=== PATIENT | male | born 1990 | race African-American/Black ===

== ENCOUNTER 2016-08-28 09:06 | Emergency (ER) | payer SELFPAY ==
[~2016-08-28] VITALS: Ht 181.6 cm; Wt 104.3 kg
[~2016-08-28 09:06] MED LIST: BUTA1CAP29 PO; TRAM-29 PO
[2016-08-28 09:22] VITALS: BP 153/101
[2016-08-28] MEDS ORDERED: BUTA1CAP29 PO (09:50)
[2016-08-28] MEDS ORDERED: TRAM50TA PO (09:50)
[2016-08-28] MEDS ORDERED: AMOX500C PO (09:50)
[2016-08-28] MEDS ORDERED: ORPH100T PO (09:50)
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
== END 2016-08-28 10:03 | disposition home or self-care (01) ==
LOC: ER 09:06
DX: S00.81XA Abrasion of other part of head, initial encounter (principal); S09.93XA Unspecified injury of face, initial encounter; G43.909 Migraine, unspecified, not intractable, without status migrainosus; F12.10 Cannabis abuse, uncomplicated; Z98.890 Other specified postprocedural states; Z88.6 Allergy status to analgesic agent; V89.2XXA Person injured in unspecified motor-vehicle accident, traffic, initial encounter; Y93.89 Activity, other specified; Y99.8 Other external cause status; Y92.488 Other paved roadways as the place of occurrence of the external cause
CPT/HCPCS: 99283

== ENCOUNTER 2017-11-01 17:36 | Emergency (ER) | payer SELFPAY ==
[2017-11-01] MEDS: HYDROcodone/APAP 5/325MG 1 TAB TABLET PO (18:40)
== END 2017-11-01 19:02 ==
LOC: ER 17:36
DX: K04.7 Periapical abscess without sinus (principal); G43.909 Migraine, unspecified, not intractable, without status migrainosus; Z88.6 Allergy status to analgesic agent
CPT/HCPCS: 99283

== ENCOUNTER 2018-01-31 20:51 | Emergency (ER) | payer SELFPAY ==
[~2018-01-31] VITALS: Ht 180.3 cm; Wt 113.4 kg
[~2018-01-31 20:51] MED LIST changes: +AMOX500C PO; +ORPH100T PO; -TRAM-29 PO; +TRAM-48 PO; +TRAM50TA PO
[2018-01-31 21:01] VITALS: BP 137/74
[2018-01-31] MEDS: AZITHROMYCIN 250 MG TABLET. PO ONE (21:35)
[2018-01-31] MEDS: metroNIDAZOLE 500 MG TABLET PO ONE (21:35)
[2018-01-31] MEDS: cefTRIAXone IM 250 MG VIAL IM ONE (21:35)
--- NOTE | 2018-01-31 22:03 | PHYS DOC ---
Past Medical History Past Medical History: STD Past Surgical History: No Surgical History Additional Past Surgical Histo: Facial, hernia repair Alcohol Use: Occasionally Drug Use: Marijuana Adult General Chief Complaint Chief Complaint: SEXUALLY TRANSMITTED DISEASE HPI HPI Patient is a 27 year old medical presents requesting prescription for antibiotics to treat him for Trichomonas because the girlfriend informed him she was treated for Trichomonas. Patient denies any symptoms. Review of Systems Review of Systems Constitutional: Denies fever or chills [] GI: Denies abdominal pain, nausea, vomiting, bloody stools or diarrhea [] : Denies dysuria or hematuria [] Male :STD concern Musculoskeletal: Denies back pain or joint pain [] Integument: Denies rash or skin lesions [] Neurologic: Denies headache, focal weakness or sensory changes [] All other systems were reviewed and found to be within normal limits, except as documented in this note. Current Medications Current Medications Current Medications Medications (Trade) Dose Ordered Sig/Gloria Start Time Stop Time Status Last Admin Dose Admin Azithromycin (Zithromax) 1,000 mg 1X ONCE 01/31/18 21:30 01/31/18 21:31 DC 01/31/18 21:35 1,000 MG Ceftriaxone Sodium (Rocephin Im) 250 mg 1X ONCE 01/31/18 21:30 01/31/18 21:31 DC 01/31/18 21:35 250 MG Metronidazole (Flagyl) 2,000 mg 1X ONCE 01/31/18 21:30 01/31/18 21:31 DC 01/31/18 21:35 2,000 MG Allergies Allergies Allergies Coded Allergies Type Severity Reaction Last Updated Verified aspirin Allergy Severe throat swelling 08/28/16 Yes Physical Exam Physical Exam Constitutional: Well developed, well nourished, no acute distress, non-toxic appearance. [] Skin: Warm, dry, no erythema, no rash. [] Back: No tenderness, no CVA tenderness. [] Extremities: No tenderness, no cyanosis, no clubbing, ROM intact, no edema. [] Neurologic: Alert and oriented X 3, normal motor function, normal sensory function, no focal deficits noted. [] Psychologic: Affect normal, judgement normal, mood normal. [] Current Patient Data Vital Signs Vital Signs Date Time Temp Pulse Resp B/P (MAP) Pulse Ox O2 Delivery O2 Flow Rate FiO2 01/31/18 21:01 97.6 78 18 137/74 (95) 97 Room Air 97.6 EKG EKG [] Radiology/Procedures Radiology/Procedures [] Course & Med Decision Making Course & Med Decision Making Pertinent Labs and Imaging studies reviewed. (See chart for details) This is a 27-year-old male patient presented to the ED today requesting prescription for medicine to treat Trichomonas. Girlfriend informed patient she was diagnosed with Trichomonas and treated. Patient was given treatment in the ED which included Rocephin Flagyl and azithromycin. Instructed him to contact all his sex partners and ask them to seek treatment too. Importance of using protection emphasized. Follow-up with the health department as needed. Dragon Disclaimer Dragon Disclaimer This electronic medical record was generated, in whole or in part, using a voice recognition dictation system. Departure Departure Impression: Primary Impression: Concern about STD in female without diagnosis Disposition: HOME, SELF-CARE Condition: STABLE Referrals: NO PCP (PCP) Follow-up with the health department as needed Patient Instructions: Sexually Transmitted Disease, [id number] Additional Instructions: You were treated in the emergency room for sexually transmitted diseases. Please use protection at all times. Follow-up with the health department as needed. Contact all your sex partners, let them know you treated for STDs and ask them to seek treatment too. SHERYL LIM APRN Jan 31, 2018 22:03
== END 2018-01-31 22:25 | disposition home or self-care (01) ==
LOC: ER 20:51
DX: Z20.2 Contact with and (suspected) exposure to infections with a predominantly sexual mode of transmission (principal); Z88.6 Allergy status to analgesic agent
CPT/HCPCS: 96372; 99283; J0696; Q0144

== ENCOUNTER 2018-02-22 10:52 | Emergency (ER) | payer SELFPAY ==
[~2018-02-22] VITALS: Ht 180.3 cm; Wt 117.9 kg
[2018-02-22 10:55] VITALS: BP 155/73
[2018-02-22] MEDS ORDERED: BENZ100C PO (11:11)
[2018-02-22] MEDS ORDERED: VENTOLIN HFA18 GM INH (11:11)
--- NOTE | 2018-02-22 11:12 | PHYS DOC ---
Past Medical History Past Medical History: STD Past Surgical History: No Surgical History Additional Past Surgical Histo: Facial, hernia repair Alcohol Use: Occasionally Drug Use: Marijuana Adult General Chief Complaint Chief Complaint: FLU SYMPTOM HPI HPI Patient is a 27 year old male who presents today complaining of cold symptoms including cough and nasal congestion for 3 days. Patient is also complaining of subjective fevers. Patient also states he is a current smoker. Review of Systems Review of Systems Constitutional: Reports subjective fevers Eyes: Denies change in visual acuity, redness, or eye pain [] HENT: Denies nasal congestion or sore throat [] Respiratory: Reports cough, denies shortness of breath [] Cardiovascular: No additional information not addressed in HPI [] GI: Denies abdominal pain, nausea, vomiting, bloody stools or diarrhea [] : Denies dysuria or hematuria [] Musculoskeletal: Denies back pain or joint pain [] Integument: Denies rash or skin lesions [] Neurologic: Denies headache, focal weakness or sensory changes [] All other systems were reviewed and found to be within normal limits, except as documented in this note. Allergies Allergies Allergies Coded Allergies Type Severity Reaction Last Updated Verified aspirin Allergy Severe throat swelling 08/28/16 Yes Physical Exam Physical Exam Constitutional: Well developed, well nourished, no acute distress, non-toxic appearance. [] HENT: Normocephalic, atraumatic, bilateral external ears normal, oropharynx moist, no oral exudates, nose normal. [] Eyes: PERRLA, EOMI, conjunctiva normal, no discharge. [] Neck: Normal range of motion, no tenderness, supple, no stridor. [] Cardiovascular:Heart rate regular rhythm, no murmur [] Lungs & Thorax: Bilateral breath sounds clear to auscultation [] Abdomen: Bowel sounds normal, soft, no tenderness, no masses, no pulsatile masses. [] Skin: Warm, dry, no erythema, no rash. [] Back: No tenderness, no CVA tenderness. [] Extremities: No tenderness, no cyanosis, no clubbing, ROM intact, no edema. [] Neurologic: Alert and oriented X 3, normal motor function, normal sensory function, no focal deficits noted. [] Psychologic: Affect normal, judgement normal, mood normal. [] Current Patient Data Vital Signs Vital Signs Date Time Temp Pulse Resp B/P (MAP) Pulse Ox O2 Delivery O2 Flow Rate FiO2 02/22/18 10:55 98.3 80 16 155/73 (100) 96 Room Air 98.3 EKG EKG [] Radiology/Procedures Radiology/Procedures [] Course & Med Decision Making Course & Med Decision Making Pertinent Labs and Imaging studies reviewed. (See chart for details) This is a 27-year-old male patient presenting to the ED today with cold-like symptoms including running nose and a cough. Patient was educated on the viral nature of his symptoms. Discharged with albuterol inhaler and Tessalon Perles. Encouraged to consider smoking cessation. Follow-up with PCP in one week. Provided return precautions and discharged in stable condition. Dragon Disclaimer Dragon Disclaimer This electronic medical record was generated, in whole or in part, using a voice recognition dictation system. Departure Departure Impression: Primary Impression: Upper respiratory infection Additional Impressions: Smoking addiction Cough Disposition: HOME, SELF-CARE Condition: STABLE Referrals: NO PCP (PCP) follow up with your doctor as needed in 1-2 weeks Patient Instructions: Cough, Adult, Upper Respiratory Infection, Adult, Easy-to -Read Additional Instructions: You were evaluated in the emergency room with cold symptoms/upper respiratory infection symptoms. Rest, push fluids, maintain good hand hygiene, use breathing treatments as needed. Consider smoking cessation. Take Tylenol as needed for pain or fever. Please follow-up with your doctor in one week. Scripts Benzonatate (TESSALON PERLE) 100 Mg Capsule 1 CAP PO TID, #30 CAP Prov: SHERYL LIM APRN 02/22/18 Albuterol Sulfate (VENTOLIN HFA INHALER) 18 Gm Hfa.aer.ad 2 PUFF INH Q4HRS for FOR ASTHMA, #1 INHALER 0 Refills Prov: SHERYL LIM APRN 02/22/18 Problem Qualifiers Primary Impression: Upper respiratory infection URI type: unspecified URI Qualified Codes: J06.9 - Acute upper respiratory infection, unspecified SHERYL LIM APRN Feb 22, 2018 11:12
== END 2018-02-22 11:29 | disposition home or self-care (01) ==
LOC: ER 10:52
DX: J06.9 Acute upper respiratory infection, unspecified (principal); F17.200 Nicotine dependence, unspecified, uncomplicated; Z88.6 Allergy status to analgesic agent
CPT/HCPCS: 99283

== ENCOUNTER 2019-02-20 12:31 | Emergency (ER) | payer SELFPAY ==
[~2019-02-20] VITALS: Ht 180.3 cm; Wt 122.5 kg
[~2019-02-20 12:31] MED LIST changes: +BENZ100C PO; +VENTOLIN HFA18 GM INH
[2019-02-20 12:57] VITALS: BP 140/90
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
[2019-02-20] MEDS ORDERED: IBUPROFEN 400 MG TABLET. PO ONE (13:15)
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
[2019-02-20] MEDS ORDERED: CYCL10TA2 PO (13:46)
[2019-02-20] MEDS ORDERED: HYDR-3164 PO (13:46)
[2019-02-20] MEDS ORDERED: IBUP-1060 PO (13:46)
== END 2019-02-20 13:55 | disposition home or self-care (01) ==
LOC: ER 12:31
DX: S29.9XXA Unspecified injury of thorax, initial encounter (principal); I10 Essential (primary) hypertension; G43.909 Migraine, unspecified, not intractable, without status migrainosus; Z88.6 Allergy status to analgesic agent; V43.52XA Car driver injured in collision with other type car in traffic accident, initial encounter; Y92.488 Other paved roadways as the place of occurrence of the external cause; Y93.89 Activity, other specified; Y99.8 Other external cause status
CPT/HCPCS: 71101; 99284